=== PATIENT | female | born 1950 | race Caucasian/White ===

== ENCOUNTER → 2016-12-03 15:24 | Outpatient (CLI) | payer MEDICARE ==
[2016-12-03 15:56] LABS: BASOPHILS 0.1 % (0-2); EOSINOPHILS 1.3 % (0-7); HEMATOCRIT 28.8 % (36.0-48.0); HEMOGLOBIN 9.1 g/dL (12-16); IMMATURE GRANULOCYTES 0.3 % (0-5); LYMPHOCYTES 11.8 % (15-50); MCH 26.7 pg (26.0-34.0); MCHC 31.6 g/dL (31.0-37.0); MCV 84.5 fL (80.0-100.0); MEAN PLATELET VOLUME 8.4 fL (7.4-10.4); MONOCYTES 8.3 % (2-11); NEUTROPHILS 78.2 % (40-80); PLATELET COUNT 358 10x3/uL (130-400); RBC 3.41 10x6/uL (4.00-5.40); WBC 7.9 10x3/uL (4.8-10.8)
[2016-12-03 16:09] LABS: ANION GAP 12.3 mmol/L (8-16); C-REACTIVE PROTEIN 10.2 mg/dL (0.0-0.9); CALCIUM 9.1 mg/dL (8.5-10.1); CREATININE - SERUM 1.4 mg/dL (0.6-1.3); POTASSIUM - SERUM 4.3 mmol/L (3.5-5.1)
[2016-12-03 16:52] LABS: ERYTHROCYTE SEDIMENTATION RATE 140 mm/hr (0-30)
== END | disposition home or self-care (01) ==
LOC: D.LABREF 15:24
PROVIDERS: Student in an Organized Health Care Education/Training Program
DX: M86.9 Osteomyelitis, unspecified (principal)

== ENCOUNTER 2017-09-23 17:21 | Inpatient (IN) | payer MEDICARE ==
[~2017-09-23] VITALS: Ht 170.2 cm; Wt 81.6 kg
--- NOTE | ~2017-09-23 | CN ---
PATIENT NAME:BRY GABRIEL MEDICAL RECORD: [id number] : 46 LOCATION:D.MS Mcknight4 ADMIT DATE: 09/23/17 ACCOUNT: [id number] CONSULTING PHYSICIAN: CONY BROOKS MD REFERRING PHYSICIAN: ANMOL SALINAS MD DATE OF CONSULTATION: 09/26/2017 HISTORY OF PRESENT ILLNESS: A 66-year-old lady transferred from [facility] with osteomyelitis being evaluated for bilateral BKAs. We are asked to see her preoperatively from a cardiovascular standpoint. She has history of atrial fibrillation, coronary artery disease, quite a poor historian. Her rates from previous ECGs and telemetry here show good control. Echo done at this facility shows normal LV function, no significant valve pathology. We are asked to see her preoperatively. PAST MEDICAL HISTORY: Includes: 1. History of peripheral vascular disease. 2. Diabetes mellitus. 3. Atrial fibrillation. 4. Coronary artery disease. 5. Anemia. 6. Hypertension. 7. Dyslipidemia. MEDICATIONS: Upon transfer include: 1. Synthroid 200 mcg every day. 2. Insulin per scale. 3. Lasix 40 every day. 4. Tramadol 50 mg q.6 hours p.r.n. 5. Neurontin 300 mg t.i.d. 6. Lexapro 10 every day. 7. Simvastatin 20 every day. 8. Imdur 60 every day. 9. Cardizem 90 every day. 10. Carvedilol 3.125 every day. 11. Plavix 75 every day. 12. Megace 20 every day. SOCIAL HISTORY: Resides in a correction in [place]. She is wheelchair bound for the past several months. ALLERGIES: Ether. PHYSICAL EXAMINATION: GENERAL: Pleasant female in no acute distress. VITAL SIGNS: Blood pressure 124/64, pulse 100 and irregular. HEENT: Normocephalic, atraumatic. NECK: No bruits noted. HEART: Irregular, rate is controlled, II/ systolic ejection murmur. LUNGS: Fairly good air excursion. ABDOMEN: Soft, nontender. DIAGNOSTIC DATA: ECG shows nonspecific ST-T changes inferiorly. IMPRESSION: Atrial fibrillation with controlled rate. LV function normal via CONSULT REPORT [id number] BRY GABRIEL echo, no significant valve pathology. No contraindication to surgery from a cardiovascular standpoint. TRANSINT:[id number] Voice Confirmation ID: [id number] DOCUMENT ID: [id number] CONY BROOKS MD at 1155 CC: [id number] DICTATION DATE: 09/26/17928 SAP DATA ARCHITECT: 09/26/17 1159 ADM IN [place] [id number] [place] [id number]
--- NOTE | ~2017-09-23 | EC ---
PATIENT:BRY GABRIEL DATE OF SERVICE: 09/23/17 SEX: F MEDICAL RECORD: [id number] DATE OF : 46 LOCATION:D.MS Mcknight AGE OF PATIENT: 66 ADMISSION DATE: 09/23/17 REFERRING PHYSICIAN: INTERPRETING PHYSICIAN: CONY BROOKS MD ECHOCARDIOGRAM REPORT ECHO CHARGES 4 ECHO COMPLETE Date: 09/25 CLINICAL DIAGNOSIS: EVALUATE LV FUN/ PRE SURGERY HO OF HTN ECHOCARDIOGRAPHIC MEASUREMENTS (adult normal given) AC root (d.<3.7cm) 3.2 cm LV Septum d (<1.2 cm> 1.3 cm Valve Excursion 1.5 cm LV Septum (systole) 1.5 cm Left Atria (s.<4.0cm> 4.4 cm LVPW d(<1.2cm) 1.5 cm RV (d.<2.3cm) 4.5 cm LVPW (sytole) 1.8 cm LV diastole(<5.6CM) 5.1 cm MV E-F(>70mm/sec) cm LV systole 3.9 cm LVOT Diameter 1.5 cm MV exc.(>10mm) 1.2 cm Est.ejection fraction (50-75%) % DOPPLER: LVIT cm/sec A 36.0 cm/sec E 126 cm/sec LA cm/sec RVSP 43 mmHg LVOT 102 cm/sec AOP1/2T m/s Asc. Ao 159 cm/sec RVOT 102 cm/sec RA cm/sec PA 111 cm/sec AV Gradient Peak 10.17mmHg AV Mean 5.71 mmHg AV Area 1.2 cm MV Gradient Peak 8.22 mmHg MV Mean 3.15 mmHg MV Area cm COMMENTS: [employer] Scientific Aid: 2 LINDA HERNANDEZ Credit Administration Specialist: 3 Dr. lEi TAPE# PACS Pericardial Effusion N DATE OF SERVICE: Adequate 2D, color flow, spectral Doppler and M-mode. Borderline LVH. LV internal dimension is normal. Wall motion is normal. EF is greater than 55%. Aortic valve is tricuspid. No evidence of stenosis on Doppler interrogation. Left atrium dilated at 4.4 cm. Mitral valve shows no prolapse. Mild MR. Right-sided chambers normal. Trace TR. TRANSINT:[id number] Voice Confirmation ID: [id number] DOCUMENT ID: [id number] ECHOCARDIOGRAM REPORT [id number] BRY GABRIEL CONY BROOKS MD at 1155 CC: [id number] DICTATION DATE: 09/26/1725 PHLEBOTOMY COORDINATOR: 09/26/17 1115 ADM IN [facility] [address] [place] [id number]
--- NOTE | ~2017-09-23 | OP ---
PATIENT NAME: BRY GABRIEL MEDICAL RECORD: [id number] :46 LOCATION:D.MS Dias2214 ADMISSION DATE:09/23/17 SURGEON: TAMERA BYRNE MD DATE OF OPERATION: 09/30/2017 PREOPERATIVE DIAGNOSIS: Bilateral lower extremity osteomyelitis with severe peripheral vascular disease. POSTOPERATIVE DIAGNOSIS: Bilateral lower extremity osteomyelitis with severe peripheral vascular disease. PROCEDURE: Bilateral below-knee amputation. SURGEON: Tamera Byrne MD ANESTHESIA: General. INTRAOPERATIVE COMPLICATIONS: None. SUMMARY OF PATHOLOGIC FINDINGS: The patient had fairly good blood flow at the level of the amputation, likely resulting in an opportunity for good healing. Understanding the risks, hazards and benefits associated with this procedure, the patient consented and wished to proceed with bilateral lower extremity amputation. OPERATIVE SUMMARY IN DETAIL: After obtaining the appropriate preoperative orthopedic surgery consent as well as anesthetic consultation, evaluation and clearance, the patient was brought to the operating room and placed on operating table in supine position. After general laryngeal mask airway was administered, tourniquet was placed about the proximal aspect of bilateral lower extremities. Bilateral lower extremities were then prepped and draped in routine sterile fashion. Attention was first turned to the left lower extremity. Left lower extremity was elevated and exsanguinated, tourniquet was inflated to 250 mmHg. Routine incision was drawn out with a long gastroc flap. Incision was then taken down to the level of the tibia as well as the level of the fibula. The tibia was cut with the System 6 power saw. Dissection was then carried to the fibula where the fibula was osteotomized more proximally. Having completed this, the amputation was completed with the amputation knife leaving a long posterior gastroc flap. Chevron cut was made in the anterior aspect of the tibia. At this point, the wound was copiously irrigated. All vessels were identified and tied. The tourniquet was then deflated. Further bleeding was either coagulated or tied for ligation. The fascia of the posterior compartment was then reapproximated to the periosteum and fascia anteriorly bringing the flap around and then the final skin closure was achieved with #1 Vicryl followed by skin rosie. This wound was provisionally dressed. The tourniquet was deflated. Attention was then turned to the right lower extremity. Right lower extremity was elevated and exsanguinated and tourniquet was inflated to 350 mmHg. Again, the incision was drawn out, was taken down to the level of the tibia as well as the fibula. Osteotomy was performed with a System 6 saw as was the fibula more proximal to the tibial cut. The amputation was then completed with an amputation knife for a long posterior gastroc flap. Chevron cut was made on the proximal aspect of the tibia. Again, the fascia of the posterior gastroc was reapproximated to the periosteum and fascia of the anterior compartment and tibia. Prior to this, again all vessels were ligated and the OPERATIVE REPORT [id number] BRY GABRIEL tourniquet was deflated. All bleeders were coagulated. Final skin closure was achieved with #1 Vicryl and skin rosie. Sterile dressings were applied. Tourniquet was deflated. Bilateral lower extremities were then terminally wrapped with sterile dressings. The patient was awakened, taken to recovery room in stable condition. All final needle and sponge counts were correct. TRANSINT:[id number] Voice Confirmation ID: [id number] DOCUMENT ID: [id number] CHAVEZ SOOD, TAMERA REYNOLDS at 1518 CC: [id number] DICTATION DATE: 11/03/17 08 HYDRAULIC TECHNICIAN: 11/03/17 1344 DIS IN 10/04/17 [facility] [address] [place] [address]
[2017-09-23 18:27] LABS: BASOPHILS 0.1 % (0-2); EOSINOPHILS 0.2 % (0-7); HEMATOCRIT 27.7 % (36.0-48.0); HEMOGLOBIN 9.1 g/dL (12-16); IMMATURE GRANULOCYTES 0.4 % (0-5); MCH 28.6 pg (26.0-34.0); MCHC 32.9 g/dL (31.0-37.0); MCV 87.1 fL (80.0-100.0); MEAN PLATELET VOLUME 8.4 fL (7.4-10.4); NEUTROPHILS 84.3 % (40-80); RBC 3.18 10x6/uL (4.00-5.40); RDW 14.4 % (11.5-14.5); WBC 8.1 10x3/uL (4.8-10.8)
[2017-09-23 18:29] LABS: ALBUMIN 1.6 g/dL (3.4-5.0); ANION GAP 12.6 mmol/L (8-16); BILIRUBIN - TOTAL 0.45 mg/dL (0.2-1.3); CALCIUM 8.2 mg/dL (8.5-10.1); CARBON DIOXIDE 25.2 mmol/L (21.0-32.0); CREATININE - SERUM 1.4 mg/dL (0.6-1.3); POTASSIUM - SERUM 4.8 mmol/L (3.5-5.1); PROTEIN - SERUM 8.1 g/dL (6.4-8.2)
[2017-09-23 18:52] LABS: PLATELET COUNT 286 10x3/uL (130-400)
[2017-09-23 22:57] VITALS: BP 96/60; BMI 28.2
[2017-09-24] MEDS ORDERED: GABAPENTIN (00:16)
[2017-09-24] MEDS ORDERED: C-500500 M1 PO (00:20)
[2017-09-24] MEDS ORDERED: COREG 3.1253.125 MG PO (00:21)
[2017-09-24] MEDS ORDERED: PLAVIX75 MG PO (00:22)
[2017-09-24] MEDS ORDERED: COLACE100 MG PO (00:23)
[2017-09-24] MEDS ORDERED: LEXAPRO10 MG PO (00:24)
[2017-09-24] MEDS ORDERED: FERROUS SULFAT325 MG PO (00:25)
[2017-09-24] MEDS ORDERED: ISOSORBIDE MONO60 M1 PO (00:26)
[2017-09-24] MEDS ORDERED: NEURONTIN 300300 MG PO (00:26)
[2017-09-24] MEDS ORDERED: LANTUS SOL100 UNIT/1 SC (00:27)
[2017-09-24] MEDS ORDERED: LASIX40 MG PO (00:40)
[2017-09-24] MEDS ORDERED: SYNTHROID200 MC1 PO (00:49)
[2017-09-24] MEDS ORDERED: NOVOLOG100 U/M1 SC (00:51)
[2017-09-24] MEDS ORDERED: PENTOXIFYLLINE400 MG PO (00:52)
[2017-09-24] MEDS ORDERED: ZOCOR20 MG PO (00:54)
[2017-09-24] MEDS ORDERED: POTASSIUM CHLO10 ME1 PO (00:54)
[2017-09-24] MEDS ORDERED: STRESSTABS WITH1 TAB PO (00:55)
[2017-09-24] MEDS ORDERED: ULTRAM50 MG PO (00:56)
[2017-09-24] MEDS ORDERED: CARDIZEM 90 MG90 MG (00:59)
[2017-09-24] MEDS ORDERED: MEGACE 20 MG TA20 MG PO (01:01)
[2017-09-24 04:22] VITALS: BP 97/52
[2017-09-24 04:23] LABS: BASOPHILS 0 % (0-2); EOSINOPHILS 0.7 % (0-7); IMMATURE GRANULOCYTES 0.3 % (0-5); LYMPHOCYTES 8.4 % (15-50); MCH 27.8 pg (26.0-34.0); MCHC 32.3 g/dL (31.0-37.0); MCV 86.3 fL (80.0-100.0); MEAN PLATELET VOLUME 8.1 fL (7.4-10.4); MONOCYTES 5.3 % (2-11); NEUTROPHILS 85.3 % (40-80); PLATELET COUNT 233 10x3/uL (130-400); RBC 2.55 10x6/uL (4.00-5.40); RDW 14.5 % (11.5-14.5)
[2017-09-24 04:31] LABS: WBC 5.8 10x3/uL (4.8-10.8)
[2017-09-24 04:32] LABS: HEMOGLOBIN 7.1 g/dL (12-16)
[2017-09-24 04:45] LABS: ANION GAP 12.4 mmol/L (8-16); CALCIUM 7.8 mg/dL (8.5-10.1); CREATININE - SERUM 1.3 mg/dL (0.6-1.3); POTASSIUM - SERUM 4.4 mmol/L (3.5-5.1)
[2017-09-24 07:42] VITALS: BP 92/56
[2017-09-24 09:56] LABS: % SATURATION 19 % (15-55); IRON 17 ug/dl (35-150); TOTAL IRON BIND CAPACITY 86 ug/dl (260-445); UNSAT IRON BIND CAPACITY 69 ug/dl (150-375)
[2017-09-24 10:05] LABS: BASOPHILS 0.2 % (0-2); EOSINOPHILS 0.5 % (0-7); HEMATOCRIT 25.9 % (36.0-48.0); HEMOGLOBIN 8.3 g/dL (12-16); IMMATURE GRANULOCYTES 0.3 % (0-5); LYMPHOCYTES 4.9 % (15-50); MCH 27.9 pg (26.0-34.0); MCV 86.9 fL (80.0-100.0); MONOCYTES 6.6 % (2-11); NEUTROPHILS 87.5 % (40-80); PLATELET COUNT 215 10x3/uL (130-400); RBC 2.98 10x6/uL (4.00-5.40); RDW 14.4 % (11.5-14.5); WBC 6.5 10x3/uL (4.8-10.8)
[2017-09-24 12:24] VITALS: BP 107/54
[2017-09-24 13:43] VITALS: BMI 28.2
[2017-09-24 14:33] VITALS: Ht 170.2 cm; Wt 81.6 kg
[2017-09-24 15:35] VITALS: BP 112/58
[2017-09-24 20:38] VITALS: BP 94/44
[2017-09-24 23:47] VITALS: BP 120/66
[2017-09-25 04:00] VITALS: BP 123/79
[2017-09-25 07:58] LABS: BASOPHILS 0.4 % (0-2); EOSINOPHILS 2.7 % (0-7); HEMATOCRIT 26.1 % (36.0-48.0); HEMOGLOBIN 8.4 g/dL (12-16); IMMATURE GRANULOCYTES 0.2 % (0-5); LYMPHOCYTES 8.3 % (15-50); MCHC 32.2 g/dL (31.0-37.0); MEAN PLATELET VOLUME 8.2 fL (7.4-10.4); MONOCYTES 5.6 % (2-11); NEUTROPHILS 82.8 % (40-80); PLATELET COUNT 241 10x3/uL (130-400); RDW 14.6 % (11.5-14.5); WBC 5.2 10x3/uL (4.8-10.8)
[2017-09-25 08:11] LABS: ALBUMIN 1.4 g/dL (3.4-5.0); ANION GAP 9.1 mmol/L (8-16); BILIRUBIN - TOTAL 0.41 mg/dL (0.2-1.3); CALCIUM 7.8 mg/dL (8.5-10.1); CARBON DIOXIDE 26.2 mmol/L (21.0-32.0); CREATININE - SERUM 1.2 mg/dL (0.6-1.3); MAGNESIUM - SERUM 1.4 mg/dL (1.8-2.4); PHOSPHOROUS 3.1 mg/dL (2.5-4.9); POTASSIUM - SERUM 4.3 mmol/L (3.5-5.1); PROTEIN - SERUM 7.4 g/dL (6.4-8.2)
[2017-09-25 08:37] VITALS: BP 134/81
[2017-09-25 11:39] VITALS: BP 131/79
[2017-09-25 14:30] LABS: APPEARANCE TURBID (CLEAR); BILIRUBIN NEGATIVE (NEGATIVE); COLOR YELLOW (YELLOW); GLUCOSE NEGATIVE (NEGATIVE); KETONE NEGATIVE (NEGATIVE); NITRITE NEGATIVE (NEGATIVE); PROTEIN TRACE mg/dL (NEGATIVE); SPECIFIC GRAVITY 1.015 (1.005-1.020); UROBILINOGEN NORMAL (NORMAL)
[2017-09-25 14:40] LABS: BACTERIA MANY /hpf (NONE SEEN); EPITHELIAL CELLS 0-5 /hpf (0-5); RED CELLS - URINE 0-5 /hpf (0-5); WHITE CELLS - URINE >50 /hpf (0-5)
[2017-09-25 15:40] VITALS: BP 143/75
[2017-09-25 20:41] VITALS: BP 100/54
[2017-09-26 00:45] VITALS: BP 155/78
[2017-09-26 00:50] VITALS: BP 113/56
[2017-09-26 04:30] VITALS: BP 126/64
[2017-09-26 07:43] LABS: BASOPHILS 0.3 % (0-2); EOSINOPHILS 3.2 % (0-7); HEMOGLOBIN 8.3 g/dL (12-16); IMMATURE GRANULOCYTES 0.3 % (0-5); LYMPHOCYTES 13.9 % (15-50); MCHC 31.9 g/dL (31.0-37.0); MCV 87.8 fL (80.0-100.0); MONOCYTES 6.4 % (2-11); NEUTROPHILS 75.9 % (40-80); PLATELET COUNT 251 10x3/uL (130-400); RBC 2.96 10x6/uL (4.00-5.40); RDW 14.6 % (11.5-14.5)
[2017-09-26 07:45] LABS: WBC 3.8 10x3/uL (4.8-10.8)
[2017-09-26 07:57] LABS: APTT 37.9 SECONDS (22.8-39.4); INR 1.27 (0.85-1.17); PROTIME 15.5 SECONDS (11.6-15.0)
[2017-09-26 08:03] LABS: ALBUMIN 1.3 g/dL (3.4-5.0); ANION GAP 9.4 mmol/L (8-16); BILIRUBIN - TOTAL 0.3 mg/dL (0.2-1.3); CALCIUM 7.7 mg/dL (8.5-10.1); CARBON DIOXIDE 23.9 mmol/L (21.0-32.0); CREATININE - SERUM 0.9 mg/dL (0.6-1.3); MAGNESIUM - SERUM 1.3 mg/dL (1.8-2.4); PHOSPHOROUS 2.7 mg/dL (2.5-4.9); POTASSIUM - SERUM 4.3 mmol/L (3.5-5.1)
[2017-09-26 11:13] LABS: FOLATE (FOLIC ACID) - SERUM 12.4 ng/mL (>3.0)
[2017-09-26 12:39] VITALS: BP 138/81
[2017-09-26 16:37] VITALS: BP 137/79
[2017-09-26 21:29] VITALS: BP 124/41
[2017-09-27 00:44] VITALS: BP 128/48
[2017-09-27 04:00] VITALS: BP 132/74
[2017-09-27 04:35] LABS: BASOPHILS 0 % (0-2); EOSINOPHILS 1.8 % (0-7); HEMATOCRIT 25.1 % (36.0-48.0); HEMOGLOBIN 7.9 g/dL (12-16); IMMATURE GRANULOCYTES 0.4 % (0-5); LYMPHOCYTES 15.7 % (15-50); MCH 27.6 pg (26.0-34.0); MCHC 31.5 g/dL (31.0-37.0); MCV 87.8 fL (80.0-100.0); MEAN PLATELET VOLUME 8.1 fL (7.4-10.4); NEUTROPHILS 75.1 % (40-80); PLATELET COUNT 246 10x3/uL (130-400); RBC 2.86 10x6/uL (4.00-5.40); RDW 14.7 % (11.5-14.5); WBC 4.5 10x3/uL (4.8-10.8)
[2017-09-27 04:52] LABS: ALBUMIN 1.2 g/dL (3.4-5.0); ANION GAP 11.1 mmol/L (8-16); BILIRUBIN - TOTAL 0.29 mg/dL (0.2-1.3); CALCIUM 7.8 mg/dL (8.5-10.1); CARBON DIOXIDE 24.4 mmol/L (21.0-32.0); POTASSIUM - SERUM 4.5 mmol/L (3.5-5.1); PROTEIN - SERUM 6.9 g/dL (6.4-8.2)
[2017-09-27 08:39] VITALS: BP 135/79
[2017-09-27 13:12] VITALS: BP 120/73
[2017-09-27 16:30] VITALS: BP 91/46
[2017-09-27 22:21] VITALS: BP 90/47
[2017-09-28 01:10] VITALS: BP 90/54
[2017-09-28 05:03] VITALS: BP 97/49
[2017-09-28 05:08] LABS: BASOPHILS 0 % (0-2); EOSINOPHILS 2.6 % (0-7); HEMATOCRIT 23.6 % (36.0-48.0); IMMATURE GRANULOCYTES 0.5 % (0-5); LYMPHOCYTES 11.8 % (15-50); MCH 27.7 pg (26.0-34.0); MCHC 31.4 g/dL (31.0-37.0); MCV 88.4 fL (80.0-100.0); MONOCYTES 7.4 % (2-11); NEUTROPHILS 77.7 % (40-80); PLATELET COUNT 238 10x3/uL (130-400); RBC 2.67 10x6/uL (4.00-5.40); RDW 14.8 % (11.5-14.5); WBC 4.2 10x3/uL (4.8-10.8)
[2017-09-28 05:29] LABS: ALBUMIN 1.2 g/dL (3.4-5.0); ANION GAP 10.2 mmol/L (8-16); BILIRUBIN - TOTAL 0.29 mg/dL (0.2-1.3); CALCIUM 7.5 mg/dL (8.5-10.1); CARBON DIOXIDE 23.1 mmol/L (21.0-32.0); POTASSIUM - SERUM 4.3 mmol/L (3.5-5.1); PROTEIN - SERUM 6.6 g/dL (6.4-8.2)
[2017-09-28 05:30] LABS: HEMOGLOBIN 7.4 g/dL (12-16)
[2017-09-28 07:52] VITALS: BP 106/61
[2017-09-28 12:20] VITALS: BP 95/49
[2017-09-28 20:31] VITALS: BP 110/64
[2017-09-29 05:57] LABS: BASOPHILS 0.2 % (0-2); EOSINOPHILS 3.3 % (0-7); HEMATOCRIT 26.7 % (36.0-48.0); HEMOGLOBIN 8.5 g/dL (12-16); IMMATURE GRANULOCYTES 0.7 % (0-5); LYMPHOCYTES 9.2 % (15-50); MCH 27.9 pg (26.0-34.0); MCHC 31.8 g/dL (31.0-37.0); MCV 87.5 fL (80.0-100.0); MEAN PLATELET VOLUME 8.2 fL (7.4-10.4); MONOCYTES 6.6 % (2-11); PLATELET COUNT 241 10x3/uL (130-400); RBC 3.05 10x6/uL (4.00-5.40); RDW 15.2 % (11.5-14.5); WBC 4.3 10x3/uL (4.8-10.8)
[2017-09-29 06:11] LABS: ALBUMIN 1.2 g/dL (3.4-5.0); ANION GAP 12.1 mmol/L (8-16); BILIRUBIN - TOTAL 0.4 mg/dL (0.2-1.3); CALCIUM 7.6 mg/dL (8.5-10.1); CARBON DIOXIDE 20.3 mmol/L (21.0-32.0); POTASSIUM - SERUM 4.4 mmol/L (3.5-5.1); PROTEIN - SERUM 6.6 g/dL (6.4-8.2)
[2017-09-29 06:20] VITALS: BP 110/62
[2017-09-29 08:10] VITALS: BP 119/64
[2017-09-29 12:49] VITALS: BP 84/48
[2017-09-29 15:55] VITALS: BP 106/53
[2017-09-29 20:46] VITALS: BP 124/80
[2017-09-30 04:49] VITALS: BP 116/70
[2017-09-30 06:28] LABS: BASOPHILS 0.5 % (0-2); EOSINOPHILS 4.6 % (0-7); HEMATOCRIT 30.6 % (36.0-48.0); HEMOGLOBIN 10.1 g/dL (12-16); IMMATURE GRANULOCYTES 0.7 % (0-5); LYMPHOCYTES 7.7 % (15-50); MCH 28.1 pg (26.0-34.0); MCV 85.2 fL (80.0-100.0); MEAN PLATELET VOLUME 8.2 fL (7.4-10.4); NEUTROPHILS 80.5 % (40-80); PLATELET COUNT 247 10x3/uL (130-400); RBC 3.59 10x6/uL (4.00-5.40); RDW 14.7 % (11.5-14.5); WBC 4.2 10x3/uL (4.8-10.8)
[2017-09-30 06:44] LABS: ALBUMIN 1.2 g/dL (3.4-5.0); ANION GAP 12.2 mmol/L (8-16); BILIRUBIN - TOTAL 0.4 mg/dL (0.2-1.3); CALCIUM 7.7 mg/dL (8.5-10.1); CARBON DIOXIDE 20.8 mmol/L (21.0-32.0); PROTEIN - SERUM 6.8 g/dL (6.4-8.2)
[2017-09-30 08:11] LABS: APTT 38.9 SECONDS (22.8-39.4); INR 1.47 (0.85-1.17); PROTIME 17.3 SECONDS (11.6-15.0)
[2017-09-30 08:25] VITALS: BP 105/68
[2017-09-30 11:01] LABS: HEMATOCRIT 25.6 % (36.0-48.0); HEMOGLOBIN 8.5 g/dL (12-16)
[2017-09-30 11:28] VITALS: BP 92/62
[2017-09-30 20:16] VITALS: BP 105/64
[2017-09-30 23:49] VITALS: BP 93/60
[2017-10-01 04:20] VITALS: BP 109/64
[2017-10-01 05:06] LABS: BASOPHILS 0.3 % (0-2); HEMATOCRIT 25.8 % (36.0-48.0); HEMOGLOBIN 8.4 g/dL (12-16); IMMATURE GRANULOCYTES 0.6 % (0-5); LYMPHOCYTES 7.9 % (15-50); MCH 28.3 pg (26.0-34.0); MCHC 32.6 g/dL (31.0-37.0); MCV 86.9 fL (80.0-100.0); MEAN PLATELET VOLUME 8.5 fL (7.4-10.4); MONOCYTES 7.1 % (2-11); NEUTROPHILS 81.1 % (40-80); PLATELET COUNT 251 10x3/uL (130-400); RBC 2.97 10x6/uL (4.00-5.40)
[2017-10-01 05:11] LABS: WBC 6.2 10x3/uL (4.8-10.8)
[2017-10-01 05:23] LABS: ALBUMIN 1.2 g/dL (3.4-5.0); BILIRUBIN - TOTAL 0.34 mg/dL (0.2-1.3); CALCIUM 7.2 mg/dL (8.5-10.1); CARBON DIOXIDE 20.5 mmol/L (21.0-32.0); CREATININE - SERUM 1.1 mg/dL (0.6-1.3); POTASSIUM - SERUM 4.5 mmol/L (3.5-5.1); PROTEIN - SERUM 6.5 g/dL (6.4-8.2)
[2017-10-01 08:00] VITALS: BP 93/55
[2017-10-01 11:54] VITALS: BP 106/62
[2017-10-01 20:00] VITALS: BP 95/47
[2017-10-02] VITALS: BP 95/51
[2017-10-02 04:00] VITALS: BP 112/67
[2017-10-02 07:41] LABS: BASOPHILS 0.3 % (0-2); EOSINOPHILS 3.5 % (0-7); HEMATOCRIT 24.9 % (36.0-48.0); IMMATURE GRANULOCYTES 0.8 % (0-5); LYMPHOCYTES 10.4 % (15-50); MCH 28.2 pg (26.0-34.0); MCHC 32.1 g/dL (31.0-37.0); MCV 87.7 fL (80.0-100.0); MEAN PLATELET VOLUME 8.5 fL (7.4-10.4); MONOCYTES 8.5 % (2-11); NEUTROPHILS 76.5 % (40-80); PLATELET COUNT 243 10x3/uL (130-400); RBC 2.84 10x6/uL (4.00-5.40); RDW 15.2 % (11.5-14.5)
[2017-10-02 08:06] LABS: ANION GAP 13.8 mmol/L (8-16); BILIRUBIN - TOTAL 0.28 mg/dL (0.2-1.3); CALCIUM 7.1 mg/dL (8.5-10.1); CARBON DIOXIDE 19.8 mmol/L (21.0-32.0); CREATININE - SERUM 1.1 mg/dL (0.6-1.3); POTASSIUM - SERUM 4.6 mmol/L (3.5-5.1); PROTEIN - SERUM 6.3 g/dL (6.4-8.2)
[2017-10-02 08:19] VITALS: BP 107/67
[2017-10-02 12:19] VITALS: BP 92/52
[2017-10-02 20:00] VITALS: BP 91/57
[2017-10-03 04:00] VITALS: BP 104/59
[2017-10-03 06:11] LABS: BILIRUBIN - TOTAL 0.26 mg/dL (0.2-1.3); CARBON DIOXIDE 18.6 mmol/L (21.0-32.0); CREATININE - SERUM 1.1 mg/dL (0.6-1.3); POTASSIUM - SERUM 4.6 mmol/L (3.5-5.1); PROTEIN - SERUM 5.5 g/dL (6.4-8.2)
[2017-10-03 06:18] LABS: CALCIUM 6.9 mg/dL (8.5-10.1)
[2017-10-03 06:36] LABS: BASOPHILS 0.3 % (0-2); EOSINOPHILS 4.7 % (0-7); HEMATOCRIT 25.1 % (36.0-48.0); HEMOGLOBIN 8.1 g/dL (12-16); IMMATURE GRANULOCYTES 0.9 % (0-5); MCHC 32.3 g/dL (31.0-37.0); MCV 86.9 fL (80.0-100.0); MEAN PLATELET VOLUME 8.4 fL (7.4-10.4); MONOCYTES 10.5 % (2-11); NEUTROPHILS 70.6 % (40-80); PLATELET COUNT 218 10x3/uL (130-400); RBC 2.89 10x6/uL (4.00-5.40); RDW 15.6 % (11.5-14.5); WBC 6.6 10x3/uL (4.8-10.8)
[2017-10-03 08:06] VITALS: BP 108/59
[2017-10-03 12:00] VITALS: BP 102/58
[2017-10-03 14:16] LABS: ERYTHROPOIETIN 29.8 mIU/mL (2.6-18.5)
[2017-10-03 15:10] VITALS: BP 85/43
[2017-10-03 15:14] VITALS: BP 104/60
[2017-10-03 21:52] VITALS: BP 95/53
[2017-10-04 00:37] VITALS: BP 91/55
[2017-10-04 04:59] VITALS: BP 111/59
[2017-10-04 05:06] LABS: BASOPHILS 0.2 % (0-2); EOSINOPHILS 3.6 % (0-7); HEMATOCRIT 24.3 % (36.0-48.0); HEMOGLOBIN 8.1 g/dL (12-16); IMMATURE GRANULOCYTES 1.4 % (0-5); LYMPHOCYTES 10.4 % (15-50); MCH 29.1 pg (26.0-34.0); MCHC 33.3 g/dL (31.0-37.0); MCV 87.4 fL (80.0-100.0); MEAN PLATELET VOLUME 8.4 fL (7.4-10.4); MONOCYTES 8.8 % (2-11); NEUTROPHILS 75.6 % (40-80); RBC 2.78 10x6/uL (4.00-5.40); RDW 15.9 % (11.5-14.5); WBC 8.1 10x3/uL (4.8-10.8)
[2017-10-04 05:20] LABS: PLATELET COUNT 287 10x3/uL (130-400)
[2017-10-04 05:26] LABS: ANION GAP 13.7 mmol/L (8-16); BILIRUBIN - TOTAL 0.32 mg/dL (0.2-1.3); CALCIUM 7.1 mg/dL (8.5-10.1); CREATININE - SERUM 1.3 mg/dL (0.6-1.3); POTASSIUM - SERUM 4.7 mmol/L (3.5-5.1); PROTEIN - SERUM 6.3 g/dL (6.4-8.2)
[2017-10-04 07:29] LABS: SPE - A/G RATIO 0.4 (0.7-1.7); SPE - ALBUMIN 1.6 g/dL (2.9-4.4); SPE - ALPHA-1 GLOBULIN 0.3 g/dL (0.0-0.4); SPE - ALPHA-2 GLOBULIN 0.8 g/dL (0.4-1.0); SPE - BETA GLOBULIN 0.9 g/dL (0.7-1.3); SPE - GAMMA GLOBULIN 2.2 g/dL (0.4-1.8); SPE - M-SPIKE Not Observed g/dL (Not Observed); SPE - TOTAL PROTEIN 5.8 g/dL (6.0-8.5)
[2017-10-04 09:19] VITALS: BP 106/56
[2017-10-04 09:25] VITALS: BP 106/56
[2017-10-04 09:53] LABS: INR 1.64 (0.85-1.17); PROTIME 18.9 SECONDS (11.6-15.0)
[2017-10-04 13:07] VITALS: BP 104/53
[2017-10-04 17:18] VITALS: BP 90/49
[2017-10-06 18:10] LABS: ADAMTS13 ACTIVITY 73.2 % (>66.8)
[2017-10-10 09:10] LABS: HAPTOGLOBIN 226 mg/dL (34-200)
== END 2017-10-04 17:39 | disposition short-term general hospital (02) | DRG 853 ==
LOC: D.ER 17:21 → D.MS 21:39
PROVIDERS: Anesthesiology; Emergency Medicine; Family Medicine; Internal Medicine Hematology & Oncology; Internal Medicine Nephrology; Orthopaedic Surgery; Specialist
PROC: 0Y6H0Z3 Detachment at Right Lower Leg, Low, Open Approach (ICD-10-PCS; 2017-09-30)
PROC: 0Y6J0Z3 Detachment at Left Lower Leg, Low, Open Approach (ICD-10-PCS; principal; 2017-09-30 08:30)
DX: A41.9 Sepsis, unspecified organism (principal); E43 Unspecified severe protein-calorie malnutrition; R53.2 Functional quadriplegia; M86.9 Osteomyelitis, unspecified; L97.429 Non-pressure chronic ulcer of left heel and midfoot with unspecified severity; L97.419 Non-pressure chronic ulcer of right heel and midfoot with unspecified severity; E87.1 Hypo-osmolality and hyponatremia; N17.9 Acute kidney failure, unspecified; E11.69 Type 2 diabetes mellitus with other specified complication; Z79.4 Long term (current) use of insulin; Z66 Do not resuscitate; E11.621 Type 2 diabetes mellitus with foot ulcer; L89.151 Pressure ulcer of sacral region, stage 1; B96.20 Unspecified Escherichia coli [E. coli] as the cause of diseases classified elsewhere; B96.89 Other specified bacterial agents as the cause of diseases classified elsewhere; E78.5 Hyperlipidemia, unspecified; D50.9 Iron deficiency anemia, unspecified; I10 Essential (primary) hypertension; I25.10 Atherosclerotic heart disease of native coronary artery without angina pectoris; I48.91 Unspecified atrial fibrillation; J44.9 Chronic obstructive pulmonary disease, unspecified; E03.9 Hypothyroidism, unspecified

== ENCOUNTER 2018-12-01 00:56 | Inpatient (IN) | payer MEDICARE ==
[2018-12-01] VITALS: BP 98/65
[~2018-12-01] VITALS: Ht 170.2 cm; Wt 96.0 kg
[~2018-12-01 00:56] MED LIST: C-500500 M1 PO; CARDIZEM 90 MG90 MG; COLACE100 MG PO; COREG 3.1253.125 MG PO; FERROUS SULFAT325 MG PO; GABAPENTIN; ISOSORBIDE MONO60 M1 PO; LANTUS SOL100 UNIT/1 SC; LASIX40 MG PO; LEXAPRO10 MG PO; MEGACE 20 MG TA20 MG PO; NEURONTIN 300300 MG PO; NOVOLOG100 U/M1 SC; PENTOXIFYLLINE400 MG PO; PLAVIX75 MG PO; POTASSIUM CHLO10 ME1 PO; STRESSTABS WITH1 TAB PO; SYNTHROID200 MC1 PO; ULTRAM50 MG PO; ZOCOR20 MG PO
[2018-12-01 01:44] LABS: HEMATOCRIT 23.6 % (36.0-48.0); HEMOGLOBIN 7.7 g/dL (12-16); MCH 28.7 pg (26.0-34.0); MCHC 32.6 g/dL (31.0-37.0); MCV 88.1 fL (80.0-100.0); MEAN PLATELET VOLUME 7.7 fL (7.4-10.4); PLATELET COUNT 253 10x3/uL (130-400); RBC 2.68 10x6/uL (4.00-5.40); RDW 14.8 % (11.5-14.5); WBC 29.2 10x3/uL (4.8-10.8)
[2018-12-01 01:53] LABS: ALBUMIN 1.6 g/dL (3.4-5.0); ANION GAP 13.3 mmol/L (8-16); BILIRUBIN - TOTAL 0.43 mg/dL (0.2-1.3); CALCIUM 8.2 mg/dL (8.5-10.1); CARBON DIOXIDE 21.8 mmol/L (21.0-32.0); CREATININE - SERUM 1.6 mg/dL (0.6-1.3); POTASSIUM - SERUM 3.1 mmol/L (3.5-5.1); PROTEIN - SERUM 6.7 g/dL (6.4-8.2)
--- NOTE | 2018-12-01 01:59 | NUR ---
WOUND CULTURE SENT TO LAB
[2018-12-01 02:13] LABS: LYMPHOCYTES 2 % (15-50); MONOCYTES 2 % (2-11); NEUTROPHILS 92 % (40-80); PLATELET ESTIMATE NORMAL
[2018-12-01 03:21] VITALS: BP 105/49; BMI 33.2
[2018-12-01 04:00] VITALS: BP 98/58
--- NOTE | 2018-12-01 05:06 | NUR ---
CATH UPON ADMISSION. MORIN CARE PROVIDED.
--- NOTE | 2018-12-01 12:00 | NUR ---
*WOUND CARE* STAGE 4 PRESSURE ULCER COCCYX 2 X 1.5 X 3CM WITH 0300 TUNNEL @ 4.5CM. - IRRIGATE WOUND WITH NORMAL SALINE AND DRY. - PACK WOUND WITH DAKIN'S SOLUTION MOISTENED KERLIX. - COVER WITH FOLDED 4X4 AND SECURE WITH TAPE. WOUND CARE TO BE PROVIDED TWICE DAILY AND WHEN SOILED.
[2018-12-01 14:42] VITALS: BMI 33.1
--- NOTE | 2018-12-01 16:00 | MORECARE ---
CASE MANAGEMENT DISCHARGE SUMMARY PATIENT: BRY GABRIEL UNIT: [id number] ADM DATE: 12/01/18 AGE: 67 : 48 SEX: F ROOM/BED: D.2236 AUTHOR: RAZ NATH PHYSICIAN: REFERRING PHYSICIAN: ANMOL SALINAS MD DATE OF SERVICE: 12/01/18 Discharge Plan Patient Name: BRY GABRIEL [facility] [facility] 1950 Planned Disposition: SNF w Planned Readmission Anticipated Discharge Date: Discharge Date: Expected LOS: Initial Reviewer: [email or web address] Initial Review Date: 12/01/2018 Generated: 12/01/18 4:59 pm Patient Name: BRY GABRIEL Page [id number] at 1600 All edits/amendments must be made on the electronic document DICTATION DATE: 12/01/18 1559 MAINTENANCE TECHNICIAN 3RD SHIFT: SHADIA 12/01/18 1559 RPT#: [id number] DC DATE: STATUS: ADM IN [facility] [address] [place] [address] END OF REPORT
--- NOTE | 2018-12-01 16:07 | MORECARE ---
CASE MANAGEMENT DISCHARGE SUMMARY PATIENT: BRY GABRIEL UNIT: [id number] ADM DATE: 12/01/18 AGE: 67 : 48 SEX: F ROOM/BED: D.2236 AUTHOR: PHAM,DOC PHYSICIAN: REFERRING PHYSICIAN: ANMOL SALINAS MD DATE OF SERVICE: 12/01/18 Discharge Plan Patient Name: BRY GABRIEL Facility: [facility]:[place] : 1950 Planned Disposition: SNF w Planned Readmission Anticipated Discharge Date: Discharge Date: Expected LOS: Initial Reviewer: [email or web address] Initial Review Date: 12/01/2018 Generated: 12/01/18 5:07 pm Comments DCP- Discharge Planning Updated by [email or web address]: Ingrid Ragsdale on 12/01/18 3:[address] Patient Name: BRY GABRIEL Admission Status: ER Accout number: [id number] Admission Date: 12-01-2018 : 1950 Admission Diagnosis:PRESSURE ULCER OF SACRAL REGION, STAGE 3 Attending: ANMOL SALINAS Current LOS: 1 Anticipated DC Date: Planned Disposition: SNF w Planned Readmission Primary Insurance: MEDICARE A & B Discharge Planning Comments: CM met with patient in the room to discuss discharge planning/needs. States she has been at [facility] in the skilled therapy unit and plans to return there at discharge. I spoke with Xin there at [facility] and she verifies that she has been in skilled and they will accept her back when ready for discharge. Xin states if she is going there on IV antibiotics, they will request a PICC line be placed. Patient is a BKA and states she has just gotten her prosthesis and learning to ambulate with them. CM will continue to follow and assist with discharge planning/needs. Stove Fitter: Ingrid Ragsdale DCPIA - Discharge Planning Initial Assessment Updated by [email or web address]: Ingrid Ragsdale on 12/01/18 4:00 pm * Is the patient Alert and Oriented? Yes * How many steps to enter\exit or inside your home? 0/0 * PCP Dr. Spencer Ortiz * Preadmission Environment Retirement Facility * Facility Name [facility] * ADLs Partial Dependent * Partial ADLs (Assistance needed) Ambulation Bathing Dressing Medication Management Toileting Transfers * Equipment Wheelchair * Other Equipment Prosthesis * List name and contact numbers for known caregivers / representatives who currently or will assist patient after discharge: Shea Garay [facility] - [phone] * Verbal permission to speak to the caregivers and representatives has been obtained from the patient. Yes * Community resources currently utilized None * Additional services required to return to the preadmission environment? No * Can the patient safely return to the preadmission environment? Yes * Has this patient been hospitalized within the prior 30 days at any hospital? Yes Coverage Notice Reviewer: [email or web address] Jazmin Ragsdale Notice Issued Date-Time: 12/01/2018 16:07 Notice Type: Patient Choice Letter Notice Delivered To: Patient Relationship to Patient: Self Cleaning Handyman Name: Delivery Method: - Jaci Days: Prior Verbal Notification: Recipient Understood Notice: Recipient Signature: Med Rec Note Co-signed by Attending: Coverage Notice Comment: Last DP export: 12/01/18 2:59 pm Patient Name: BRY GABRIEL Page [id number] at 1607 All edits/amendments must be made on the electronic document DICTATION DATE: 12/01/181606 NICKEL PLANT OPERATOR: SHADIA 12/01/18 160 RPT#: [id number] DC DATE: STATUS: ADM IN [facility] [address] [place] [address] END OF REPORT
--- NOTE | 2018-12-01 18:36 | NUR ---
I have reviewed this patient and I concur with the Shift Assessment completed by the Licensed Practical Nurse today this shift.
--- NOTE | 2018-12-01 19:00 | NUR ---
PT ALERT AND ORIENTED. SLOW TO RESPOND TO QUESTIONS AT TIMES. PT HAS LEFT THUMB IV THAT IS PATENT AND INFUSING AT THIS TIME. PT DENIES PAIN. WOUND CARE PROVIDED TO PATIENT PER DR. REECE FOLLOWING WOUND CARE ORDERS THAT WERE ENTERED TODAY. PT TOLERATED WELL. DENIES FURTHER ASSISTANCE AT THIS TIME. PT LAYS NEARLY ON STOMACH AND APPEARS UNCOMFORTABLE BUT REFUSES TO REPOSITION AT THIS TIME. CALL LIGHT IN REACH. CPOC.
[2018-12-01 19:27] VITALS: Ht 170.2 cm; Wt 96.0 kg
[2018-12-01 20:00] VITALS: BP 102/48
--- NOTE | 2018-12-02 00:40 | NUR ---
IV OUT. ATTEMPTED TO RESTART X 3. UNSUCCESSFUL.
[2018-12-02 02:10] LABS: APPEARANCE TURBID (CLEAR); COLOR DK YELLOW (YELLOW); GLUCOSE NEGATIVE (NEGATIVE); KETONE NEGATIVE (NEGATIVE); NITRITE NEGATIVE (NEGATIVE); PROTEIN 3+ mg/dL (NEGATIVE); SPECIFIC GRAVITY 1.015 (1.005-1.020)
[2018-12-02 02:11] LABS: AMORPHOUS SEDIMENT >1+ /lpf (NONE SEEN); BACTERIA MANY /hpf (NONE SEEN); BILIRUBIN NEGATIVE (NEGATIVE); GRANULAR CAST NONE SEEN /lpf (NONE SEEN); HYALINE CAST NONE SEEN /lpf (NONE SEEN); MUCUS >1+ /lpf (NONE SEEN); RED CELL CAST NONE SEEN /lpf (NONE SEEN); SPERMATOZOA NONE SEEN /hpf (NONE SEEN); WAXY CAST NONE SEEN /lpf (NONE SEEN); YEAST NONE SEEN /hpf (NONE SEEN)
--- NOTE | 2018-12-02 02:57 | NUR ---
I have reviewed this patient and I concur with the Shift Assessment completed by the Licensed Practical Nurse today this shift.
[2018-12-02 06:53] LABS: BASOPHILS 0 % (0-2); EOSINOPHILS 0.4 % (0-7); HEMATOCRIT 27.1 % (36.0-48.0); HEMOGLOBIN 9.1 g/dL (12-16); IMMATURE GRANULOCYTES 0.6 % (0-5); LYMPHOCYTES 2.7 % (15-50); MCH 28.2 pg (26.0-34.0); MCHC 33.6 g/dL (31.0-37.0); MCV 83.9 fL (80.0-100.0); MEAN PLATELET VOLUME 8.1 fL (7.4-10.4); MONOCYTES 3.6 % (2-11); NEUTROPHILS 92.7 % (40-80); PLATELET COUNT 256 10x3/uL (130-400); RBC 3.23 10x6/uL (4.00-5.40); RDW 16.5 % (11.5-14.5); WBC 23.2 10x3/uL (4.8-10.8)
[2018-12-02 06:57] LABS: ANION GAP 15.3 mmol/L (8-16); CALCIUM 7.9 mg/dL (8.5-10.1); CARBON DIOXIDE 18.2 mmol/L (21.0-32.0); CREATININE - SERUM 1.8 mg/dL (0.6-1.3); POTASSIUM - SERUM 3.5 mmol/L (3.5-5.1)
--- NOTE | 2018-12-02 07:51 | NUR ---
CALLED LAB AND SPOKE TO MARTITA REQUESTING A CULTURE BE ADDED TO PREVIOUSLY COLLECTED URINE. SHE CONFIRMED.
[2018-12-02 08:30] VITALS: BP 112/48
--- NOTE | 2018-12-02 09:43 | NUR ---
CLEANED AROUND WOUND WITH WOUND UNDERWRITING DIRECTOR AND 4X4. PATTED DRY. DRSG CHANGED TO COCCYX USING DAKIN'S SOLUTION SOAKED KERLIX PACKED IN WOUND, COVERED WITH 4X4 AND MEDIPORE TAPE. TIMED, DATED AND INITIALLED. PATIENT TOLERATED WELL, NO C/O PAIN.
[2018-12-02 12:16] VITALS: BP 125/59
--- NOTE | 2018-12-02 14:34 | NUR ---
I have reviewed this patient and I concur with the Shift Assessment completed by the Licensed Practical Nurse today this shift.
[2018-12-02 16:55] VITALS: BP 110/71
--- NOTE | 2018-12-02 19:00 | NUR ---
ALERT AND ORIENTED. LEFT THUMB IV INFUSING NS @ 125. DENIES PAIN OR DISCOMFORT AT THIS TIME. REPOSITIONED PATIENT TO OPPOSITE SIDE. WEARING 2 L NASAL CANNULA. DENIES FURTHER NEEDS. CALL LIGHT IN REACH.
[2018-12-02 20:00] VITALS: BP 95/44
--- NOTE | 2018-12-03 03:13 | NUR ---
I have reviewed this patient and I concur with the Shift Assessment completed by the Licensed Practical Nurse today this shift.
[2018-12-03 04:00] VITALS: BP 99/55
--- NOTE | 2018-12-03 07:45 | NUR ---
AAOX4. ON ROOM AIR, EVEN UNLABORED BREATHING, IV TO LEFT FOREARM, PATENT, INFUSING NS 125ML/HR. BED LOWERED AND LOCKED, CALL LIGHT WITHIN REACH. CPOC
[2018-12-03 09:25] VITALS: BP 144/78
--- NOTE | 2018-12-03 09:53 | NUR ---
SACRAL DRESSING CHANGED. DANKINS SOLUTION, SOAKED KERLIX, PACKED, YELLOW/GREENISH, ODOROUS DRAINAGE, REDDED AROUND AREA, BLANCHABLE ON SURRONDING TISSUE, BED LOWERED AND LOCKED, CALL LIGHT WITHIN REACH. CPOC
[2018-12-03 13:00] VITALS: BP 140/72
[2018-12-03 13:37] LABS: ANION GAP 15.6 mmol/L (8-16); CALCIUM 7.8 mg/dL (8.5-10.1); CARBON DIOXIDE 18.1 mmol/L (21.0-32.0); CREATININE - SERUM 1.6 mg/dL (0.6-1.3); POTASSIUM - SERUM 3.7 mmol/L (3.5-5.1)
[2018-12-03 13:38] LABS: BASOPHILS 0 % (0-2); EOSINOPHILS 0.8 % (0-7); HEMATOCRIT 27.3 % (36.0-48.0); HEMOGLOBIN 9.2 g/dL (12-16); IMMATURE GRANULOCYTES 0.6 % (0-5); LYMPHOCYTES 1.9 % (15-50); MCH 28.7 pg (26.0-34.0); MCHC 33.7 g/dL (31.0-37.0); MEAN PLATELET VOLUME 7.8 fL (7.4-10.4); MONOCYTES 4.4 % (2-11); NEUTROPHILS 92.3 % (40-80); RBC 3.21 10x6/uL (4.00-5.40); RDW 16.5 % (11.5-14.5); WBC 19.4 10x3/uL (4.8-10.8)
[2018-12-03 13:40] LABS: PLATELET COUNT 311 10x3/uL (130-400)
[2018-12-03 18:20] VITALS: BP 145/76
[2018-12-03 20:00] VITALS: BP 107/41
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
[2018-12-04] VITALS: BP 118/58
[2018-12-04 04:00] VITALS: BP 117/44
--- NOTE | 2018-12-04 04:49 | NUR ---
I have reviewed this patient and I concur with the Shift Assessment completed by the Licensed Practical Nurse today this shift.
[2018-12-04 08:06] LABS: BASOPHILS 0.1 % (0-2); EOSINOPHILS 1.2 % (0-7); HEMATOCRIT 26.1 % (36.0-48.0); HEMOGLOBIN 8.8 g/dL (12-16); IMMATURE GRANULOCYTES 0.5 % (0-5); LYMPHOCYTES 3.2 % (15-50); MCH 28.3 pg (26.0-34.0); MCHC 33.7 g/dL (31.0-37.0); MCV 83.9 fL (80.0-100.0); MEAN PLATELET VOLUME 7.6 fL (7.4-10.4); MONOCYTES 6.1 % (2-11); NEUTROPHILS 88.9 % (40-80); PLATELET COUNT 273 10x3/uL (130-400); RBC 3.11 10x6/uL (4.00-5.40); RDW 16.3 % (11.5-14.5); WBC 15.8 10x3/uL (4.8-10.8)
[2018-12-04 08:13] LABS: CALCIUM 7.9 mg/dL (8.5-10.1); CARBON DIOXIDE 18.4 mmol/L (21.0-32.0); CREATININE - SERUM 1.4 mg/dL (0.6-1.3); MAGNESIUM - SERUM 1.4 mg/dL (1.8-2.4); POTASSIUM - SERUM 3.4 mmol/L (3.5-5.1)
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
--- NOTE | 2018-12-04 09:45 | NUR ---
IV STARTED BY VASCULAR ACCESS NURSE.
--- NOTE | 2018-12-04 10:50 | NUR ---
RESTING IN BED. DENIES PAIN. DENIES NEEDS.
[2018-12-04 13:02] VITALS: BP 125/71
--- NOTE | 2018-12-04 13:08 | NUR ---
REQUESTED ORANGES. ONE TIME DIET ORDER FOR ORANGES PLACED.
--- NOTE | 2018-12-04 14:32 | NUR ---
RESTING IN BED. DENIES NEEDS AT THIS TIME. WILL CONTINUE TO MONITOR.
--- NOTE | 2018-12-04 15:04 | NUR ---
NUTRITION F/U CHART REVIEWED, PT REMAINS IN ISOLATION. DIABETIC DIET WITH ~ 25% INTAKE RECENT MEALS. WILL CONTINUE TO PROVIDE DIET, MONITOR PO INTAKE. RD FOLLOWING
--- NOTE | 2018-12-04 16:12 | NUR ---
BLOOD SUGAR 225. WILL COVER PER SS.
[2018-12-04 16:56] VITALS: BP 96/72
--- NOTE | 2018-12-04 17:00 | NUR ---
REQUESTED AND GIVEN SANDWICH BOX FROM [facility].
--- NOTE | 2018-12-04 17:29 | NUR ---
REFUSES DINNER TRAY. DENIES FURTHER NEEDS.
[2018-12-04 20:00] VITALS: BP 138/55
--- NOTE | 2018-12-04 21:00 | NUR ---
FSBS 213 8 UNITS OF INSULIN GIVEN PER SS. DRESSING CHANGED AT THIS TIME. PT TOLERATED WELL.
[2018-12-05 01:04] VITALS: BP 115/71
--- NOTE | 2018-12-05 03:39 | NUR ---
I have reviewed this patient and I concur with the Shift Assessment completed by the Licensed Practical Nurse today this shift.
--- NOTE | 2018-12-05 04:16 | NUR ---
PT RESTING IN BED. EYES CLOSED. NO SIGNS OF DISTRESS. BREATHING EVEN AND UNLABROED. CALL LIGHT IN REACH. BED LOWERED AND LOCKED. WILL CONTINUE PLAN OF CARE.
[2018-12-05 05:27] LABS: BASOPHILS 0 % (0-2); EOSINOPHILS 2.2 % (0-7); HEMATOCRIT 25.5 % (36.0-48.0); HEMOGLOBIN 8.5 g/dL (12-16); IMMATURE GRANULOCYTES 0.6 % (0-5); MCH 28.1 pg (26.0-34.0); MCHC 33.3 g/dL (31.0-37.0); MCV 84.4 fL (80.0-100.0); MEAN PLATELET VOLUME 7.8 fL (7.4-10.4); MONOCYTES 7.1 % (2-11); NEUTROPHILS 84.1 % (40-80); PLATELET COUNT 276 10x3/uL (130-400); RBC 3.02 10x6/uL (4.00-5.40); WBC 14.3 10x3/uL (4.8-10.8)
[2018-12-05 05:53] LABS: ANION GAP 14.5 mmol/L (8-16); CALCIUM 7.6 mg/dL (8.5-10.1); CARBON DIOXIDE 19.1 mmol/L (21.0-32.0); CREATININE - SERUM 1.3 mg/dL (0.6-1.3); MAGNESIUM - SERUM 1.4 mg/dL (1.8-2.4); POTASSIUM - SERUM 3.6 mmol/L (3.5-5.1); VANCOMYCIN - RANDOM 22.5 ug/mL (10.0-20.0)
--- NOTE | 2018-12-05 06:34 | NUR ---
FSBS 121 NO INSULIN GIVEN AT THIS TIME PER SS.
--- NOTE | 2018-12-05 08:06 | NUR ---
PT ALERT X 4. BREATH SOUNDS CLEAR BILAT. IV TO LEFT WRIST, PATENT, DRESSING CDI. BILAT BKA. BREAKFAST IN ROOM, CALL LIGHT IN REACH. NO OTHER NEEDS AT THIS TIME.
[2018-12-05 08:16] VITALS: BP 178/91
[2018-12-05 12:43] VITALS: BP 140/74
--- NOTE | 2018-12-05 21:00 | NUR ---
FSBS 271 10 UNITS OF INSULIN GIVEN PER SS.
[2018-12-06 06:51] LABS: BASOPHILS 0 % (0-2); EOSINOPHILS 2.5 % (0-7); HEMATOCRIT 26.7 % (36.0-48.0); HEMOGLOBIN 8.8 g/dL (12-16); IMMATURE GRANULOCYTES 0.5 % (0-5); MCH 28.3 pg (26.0-34.0); MCV 85.9 fL (80.0-100.0); MEAN PLATELET VOLUME 7.9 fL (7.4-10.4); MONOCYTES 8.2 % (2-11); NEUTROPHILS 81.8 % (40-80); PLATELET COUNT 278 10x3/uL (130-400); RBC 3.11 10x6/uL (4.00-5.40); RDW 16.3 % (11.5-14.5); WBC 11.7 10x3/uL (4.8-10.8)
[2018-12-06 06:59] LABS: ANION GAP 14.3 mmol/L (8-16); CALCIUM 7.6 mg/dL (8.5-10.1); CARBON DIOXIDE 19.4 mmol/L (21.0-32.0); CREATININE - SERUM 1.3 mg/dL (0.6-1.3); MAGNESIUM - SERUM 1.6 mg/dL (1.8-2.4); POTASSIUM - SERUM 3.7 mmol/L (3.5-5.1); VANCOMYCIN - RANDOM 16.4 ug/mL (10.0-20.0)
[2018-12-06 09:44] VITALS: BP 142/59
[2018-12-06 12:09] VITALS: BP 127/82
--- NOTE | 2018-12-06 12:15 | NUR ---
1210 - REQUESTED THAT RECEIVING RN REQUEST OVERLAY FOR BED FROM WOUND CARE NURSE OR ADMITTING PHYSICIAN
--- NOTE | 2018-12-06 14:36 | OP ---
PATIENT NAME: BRY GABRIEL MEDICAL RECORD: [id number] :46 LOCATION:D.MS Dias2236 ADMISSION DATE:12/01/18 SURGEON: TAMERA MACIAS MD DATE OF OPERATION: 12/06/2018 SURGEON: Tamera Macias MD PREOPERATIVE DIAGNOSIS: Infected sacral decubitus. POSTOPERATIVE DIAGNOSIS: Stage IV sacral decubitus with abscess and surrounding cellulitis. PROCEDURE PERFORMED: Excisional debridement of stage IV sacral decubitus ulcer. ANESTHESIA: General. COMPLICATIONS: None. SPECIMENS: Anaerobic and aerobic cultures, tissue cultures. Case was grossly contaminated. ESTIMATED BLOOD LOSS: 30 cc. OPERATIVE COURSE: Consent was obtained. The patient was taken to the operating room and general anesthesia was given. She was then placed in the prone position on the operating room table. Time-out was obtained confirming correct patient, procedure. There was a 2 x 2 cm opening that was 4 cm deep. There was active liquid purulent fluid emanating from moving from the wound. Skin was excised in an elliptical fashion using electrocautery. This continued down to the level of the sacrum itself. There was sacral bone exposed. There were multiple tunneling tracts that appear to tunnel alongside and posterior to the sacrum. There was purulent fluid emanating from the tunneling tracts on both sides of the sacrum. All necrotic tissue was debrided. The wound size was approximately 5 x 5 x 6 cm in depth with again sacral bone exposed with tracts tunneling deep to the sacral space. The anaerobic and aerobic cultures were obtained. Tissue cultures were obtained. Electrocautery was used for hemostasis. The wound was irrigated with peroxide and Betadine. The wound was then packed with Kerlix soaked in Betadine and peroxide. At the end of the case, all needle and instrument counts were correct. No complications occurred. The patient was extubated and transferred to the recovery room in satisfactory condition. TRANSINT:[id number] Voice Confirmation ID: [id number] DOCUMENT ID: [id number] TAMERA MACIAS MD at 1436 CC: [id number] DICTATION DATE: 12/06/18 1104 LARGE ENGINE ASSEMBLER: 12/06/18 1243 ADM IN [place] [id number] [place] [address]
[2018-12-06 18:35] VITALS: BP 115/61
--- NOTE | 2018-12-06 21:00 | NUR ---
RESTING QUEITLY WITH NO DISTRESS NOTED. RESP UNALBORED. CL IN REACJ
--- NOTE | 2018-12-07 04:16 | NUR ---
I have reviewed this patient and I concur with the Shift Assessment completed by the Licensed Practical Nurse today this shift.
[2018-12-07 05:11] LABS: BASOPHILS 0 % (0-2); EOSINOPHILS 2.7 % (0-7); HEMATOCRIT 24.8 % (36.0-48.0); HEMOGLOBIN 8.2 g/dL (12-16); IMMATURE GRANULOCYTES 0.5 % (0-5); MCH 28.8 pg (26.0-34.0); MCHC 33.1 g/dL (31.0-37.0); MONOCYTES 7.6 % (2-11); NEUTROPHILS 81.2 % (40-80); PLATELET COUNT 252 10x3/uL (130-400); RBC 2.85 10x6/uL (4.00-5.40); RDW 16.4 % (11.5-14.5)
[2018-12-07 05:45] LABS: ANION GAP 13.9 mmol/L (8-16); CALCIUM 7.5 mg/dL (8.5-10.1); CARBON DIOXIDE 18.4 mmol/L (21.0-32.0); CREATININE - SERUM 1.3 mg/dL (0.6-1.3); MAGNESIUM - SERUM 1.4 mg/dL (1.8-2.4); VANCOMYCIN - RANDOM 14.4 ug/mL (10.0-20.0)
[2018-12-07 06:00] LABS: POTASSIUM - SERUM 4.3 mmol/L (3.5-5.1)
--- NOTE | 2018-12-07 07:30 | NUR ---
PT RESTING IN BED WATCHING TV. NO ACUTE DISTRESS NOTED AT THIS TIME. RESP EVEN AND UNLABORED. EDUCATED PT REGARDING ORDERS FOR WOUND VAC TO WOUND TO COCCYX AREA. SURGICAL DRESSING REMAINS INTACT TO COCCYX. IV TO LEFT FOREARM INTACT WITH NS @ 100ML/HR INFUSING VIA PUMP. SITE WITHOUT REDNESS OR EDEMA. DENIES FURTHER NEEDS AT THIS TIME. CL WITHIN REACH. ENCOURAGED TO CALL WITH NEEDS. CONTINUE POC
[2018-12-07 09:38] VITALS: BP 111/51
--- NOTE | 2018-12-07 11:56 | NUR ---
Wound vac dressing was applied to sacral pressure injury. I&D performed yesterday in OR. WOUND VAC DRESSING APPLICATION: DATE:12/07/18 WOUND LOCATION: SACRUM WOUND MEASUREMENTS: 4CM X 2.5CM X 10CM X 8CM AT 4 OCLOCK WOUND DESCRIPTION: RED MUSCLE, TENDON, OR BONE EXPOSED? BONE DRAINAGE AMOUNT/DESCRIPTION: MODERATE SEROSANGUINOUS ODOR? NONE NOTED TYPE OF SPONGE USED AND AMOUNT: 1 WHITE SPONGE FOR DEPTH/TUNNEL PLUS 3 BLACK SPONGE (1 FOR WOUND BED, 1 FOR PIGTAIL AND 1 FOR TRAC PAD) SETTINGS: -125MMHG MODERATE CONTINUOUS TEACHING: PURPOSE OF WOUND VAC PT TOLERATED WELL.
--- NOTE | 2018-12-07 12:36 | NUR ---
Nutrition Follow Up: Nursing in with pt at the time of RD visit. Interview deferred at this time. Noted pt is POD 1 I&D. Diet: ADA PO Intake: 47% meal avg BM: 12/05/18 Labs reviewed Meds noted including Vit C, MV, Megace Rec continue current diet. Rec 1 pkt Praneeth BID to promote wound healing. RD following.
[2018-12-07 14:11] VITALS: BP 104/57
[2018-12-07 14:12] LABS: AEROBE ID Final report (())
[2018-12-07 17:56] VITALS: BP 117/71
--- NOTE | 2018-12-07 20:30 | NUR ---
AWAKE,ALERT,NO COMPLAITNS VOICED. RESP EVEM AND UNLAOBRED. NO DISTRESS NOTED.IV INFUSING TO LFA WITHOUT REDNESS OR EDEMA NOTED. MORIN PATENT AND DRAINING CLEAR YELLOW URINE.WOUND VAC INTACT TO COCCYX. TURNED AND POSITIONED. CL IN REACH
[2018-12-07 21:08] VITALS: BP 112/68
[2018-12-08 01:39] VITALS: BP 122/73
--- NOTE | 2018-12-08 04:00 | NUR ---
I have reviewed this patient and I concur with the Shift Assessment completed by the Licensed Practical Nurse today this shift.
[2018-12-08 04:58] VITALS: BP 124/65
[2018-12-08 06:12] LABS: BASOPHILS 0.1 % (0-2); EOSINOPHILS 3.2 % (0-7); HEMATOCRIT 23.9 % (36.0-48.0); HEMOGLOBIN 7.8 g/dL (12-16); IMMATURE GRANULOCYTES 0.3 % (0-5); LYMPHOCYTES 8.7 % (15-50); MCH 28.3 pg (26.0-34.0); MCHC 32.6 g/dL (31.0-37.0); MCV 86.6 fL (80.0-100.0); MONOCYTES 7.7 % (2-11); PLATELET COUNT 245 10x3/uL (130-400); RBC 2.76 10x6/uL (4.00-5.40); RDW 16.2 % (11.5-14.5); WBC 9.7 10x3/uL (4.8-10.8)
[2018-12-08 06:38] LABS: ANION GAP 12.7 mmol/L (8-16); CALCIUM 7.6 mg/dL (8.5-10.1); CARBON DIOXIDE 18.8 mmol/L (21.0-32.0); CREATININE - SERUM 1.4 mg/dL (0.6-1.3); MAGNESIUM - SERUM 1.4 mg/dL (1.8-2.4); POTASSIUM - SERUM 4.5 mmol/L (3.5-5.1)
--- NOTE | 2018-12-08 08:01 | NUR ---
AAOX4. ON ROOM AIR, EVEN UNLABORED BREATHING, IV CATHETER TO LEFT FOREARM, PATENT, INFUSING NS AT 100ML/HR. MORIN CATHETER PRESENT, WOUND VAC TO SACRAL WOUND, FUNCTIONING PROPERLY. REPOSITONED IN BED, PAIN LEVEL 8/10. DENIES ANY OTHER NEEDS OR DISCOMFORTS, BED LOWERED AND LOCKED, CALL LIGHT WITHIN REACH. CPOC
[2018-12-08 08:45] VITALS: BP 129/70
--- NOTE | 2018-12-08 09:40 | NUR ---
PAIN MEDICATION GIVEN PER ORDER FOR PAIN LEVEL 8/10.
--- NOTE | 2018-12-08 10:47 | NUR ---
REPOSITIONED TO RIGHT SIDE, SUPPORTED WITH PILLOWS, DENIES ANY OTHER PAIN OR DISCOMFORTS, BED LOWERED AND LOCKED. CALL LIGHT WITHIN REACH. CPOC
[2018-12-08 14:37] VITALS: BP 119/50
--- NOTE | 2018-12-08 14:41 | NUR ---
UNIT 1/2 OF PRBC INITATED RO LEFT FOREARM 20G, VERIFIED BY TWO NURSES, PRE VITALS OBTAINED, LUNGS CLEAR BILATERALLY, DENIES ANY CURRENT NEEDS OR DISCOMFORTS, BED LOWERED AND LOCKED, CALL LIGHT WITHIN REACH. CPOC
--- NOTE | 2018-12-08 15:18 | NUR ---
15 MINUTE VITALS WERE STABLE, AFEBRILE, LUNG SOUNDS CLEAR BILATERALLY. NO SHORTNESS OF BREATH OBSERVED OR STATED. DENIES ANY OTHER DISCOMFORTS OR NEEDS, BED LOWERED AND LOCKED, CALL LIGHT WITHIN REACH. CPOC
[2018-12-08 18:03] VITALS: BP 138/69
--- NOTE | 2018-12-08 19:15 | NUR ---
RECEIVED CARE FROM DAY NURSE. LYING IN BED ON SIDE. REQUEST TO BE TURNED. DONE AT THIS TIME. IV TO LEFT FA PATENT AND INFUSING BLOOD. MORIN TO GRAVITY.
[2018-12-08 21:22] VITALS: BP 128/67
[2018-12-09 05:14] VITALS: BP 130/58
[2018-12-09 06:24] LABS: BASOPHILS 0.1 % (0-2); EOSINOPHILS 3.7 % (0-7); IMMATURE GRANULOCYTES 0.5 % (0-5); MCH 28.4 pg (26.0-34.0); MCHC 32.9 g/dL (31.0-37.0); MCV 86.3 fL (80.0-100.0); MEAN PLATELET VOLUME 8.2 fL (7.4-10.4); MONOCYTES 7.5 % (2-11); NEUTROPHILS 77.2 % (40-80); PLATELET COUNT 226 10x3/uL (130-400); RDW 15.9 % (11.5-14.5)
[2018-12-09 06:29] LABS: HEMATOCRIT 28.9 % (36.0-48.0); HEMOGLOBIN 9.5 g/dL (12-16); RBC 3.35 10x6/uL (4.00-5.40)
--- NOTE | 2018-12-09 06:40 | NUR ---
I have reviewed this patient and I concur with the Shift Assessment completed by the Licensed Practical Nurse today this shift.
[2018-12-09 07:18] LABS: ALBUMIN 1.3 g/dL (3.4-5.0); ANION GAP 15.2 mmol/L (8-16); BILIRUBIN - TOTAL 0.48 mg/dL (0.2-1.3); CALCIUM 7.9 mg/dL (8.5-10.1); CARBON DIOXIDE 17.5 mmol/L (21.0-32.0); CREATININE - SERUM 1.4 mg/dL (0.6-1.3); POTASSIUM - SERUM 4.7 mmol/L (3.5-5.1)
[2018-12-09 08:47] VITALS: BP 90/63
[2018-12-09 12:41] VITALS: BP 132/44
[2018-12-09 18:07] VITALS: BP 150/42
[2018-12-09 20:00] VITALS: BP 135/47
[2018-12-10] VITALS: BP 129/56
[2018-12-10 04:00] VITALS: BP 126/76
--- NOTE | 2018-12-10 04:29 | NUR ---
I have reviewed this patient and I concur with the Shift Assessment completed by the Licensed Practical Nurse today this shift.
[2018-12-10 06:29] LABS: BASOPHILS 0.2 % (0-2); EOSINOPHILS 4.8 % (0-7); HEMATOCRIT 28.4 % (36.0-48.0); HEMOGLOBIN 9.3 g/dL (12-16); IMMATURE GRANULOCYTES 0.3 % (0-5); MCH 28.3 pg (26.0-34.0); MCHC 32.7 g/dL (31.0-37.0); MCV 86.3 fL (80.0-100.0); MEAN PLATELET VOLUME 8.3 fL (7.4-10.4); MONOCYTES 8.3 % (2-11); NEUTROPHILS 75.4 % (40-80); PLATELET COUNT 230 10x3/uL (130-400); RBC 3.29 10x6/uL (4.00-5.40); RDW 15.8 % (11.5-14.5); WBC 8.6 10x3/uL (4.8-10.8)
[2018-12-10 07:17] LABS: ALBUMIN 1.2 g/dL (3.4-5.0); ANION GAP 14.7 mmol/L (8-16); BILIRUBIN - TOTAL 0.36 mg/dL (0.2-1.3); CALCIUM 7.9 mg/dL (8.5-10.1); CARBON DIOXIDE 17.3 mmol/L (21.0-32.0); CREATININE - SERUM 1.1 mg/dL (0.6-1.3); PROTEIN - SERUM 5.9 g/dL (6.4-8.2)
--- NOTE | 2018-12-10 08:34 | NUR ---
AAOX4. ON ROOM AIR, IV TO LEFT FOREARM, PATENT, INFUSING NS AT 50ML/HR, EVEN UNLABORED BREATHING, WOUND VAC TO COCCYX, MORIN CATHETER, YELLOW/CLEAR URINE IN DRAINAGE BAG, BILATERAL BKA, DENIES ANY CURRENT NEEDS OR DISCOMFORTS, BED LOWERED AND LOCKED, CALL LIGHT WITHIN REACH. CPOC
[2018-12-10 08:49] VITALS: BP 109/63
[2018-12-10 12:39] VITALS: BP 131/44
--- NOTE | 2018-12-10 16:55 | NUR ---
IV INFILITRATED TO LEFT FOREARM, DISCONTINUED IV, CATHETER TIP INTACT, REQUEST PRN PAIN MEDICATION FOR PAIN LEVEL 8/10 TO BUTTOCKS AND LOWER BACK, DENIES ANY OTHER NEEDS OR DISCOMFORTS, BED LOWRED AND LOCKED, CALL LIGHT WITHIN REACH. CPOC
[2018-12-10 17:55] VITALS: BP 128/50
--- NOTE | 2018-12-10 18:33 | NUR ---
AAOX4. ON ROOM AIR, WOUND VAC TO COCCYX, NO IV ACCESS, REFUSED TO LET ME START ANOTHER AT CURRENT TIME, RECIEVED PRN PAIN MEDICATION 1 TIME DURING SHIFT, MORIN CATHETER, DENIES ANY OTHER NEEDS OR DISCOMFORTS, BED LOWERED AND LOCKED, CALL LIGHT WITHIN REACH. CPOC
--- NOTE | 2018-12-10 19:15 | NUR ---
RECIEVED CARE FROM DAY NURSE. LYING IN BED ON SIDE. NO IV. CALL LIGHT AT SIDE. MORIN TO GRAVITY. NO NEEDS VOICED AT THIS TIME.
[2018-12-10 20:00] VITALS: BP 112/52
[2018-12-11] VITALS: BP 118/60
--- NOTE | 2018-12-11 03:26 | NUR ---
I have reviewed this patient and I concur with the Shift Assessment completed by the Licensed Practical Nurse today this shift.
[2018-12-11 04:00] VITALS: BP 119/56
[2018-12-11 05:31] LABS: BASOPHILS 0.2 % (0-2); EOSINOPHILS 3.8 % (0-7); HEMATOCRIT 29.2 % (36.0-48.0); HEMOGLOBIN 9.6 g/dL (12-16); IMMATURE GRANULOCYTES 0.4 % (0-5); LYMPHOCYTES 10.9 % (15-50); MCH 28.4 pg (26.0-34.0); MCHC 32.9 g/dL (31.0-37.0); MCV 86.4 fL (80.0-100.0); MEAN PLATELET VOLUME 8.6 fL (7.4-10.4); MONOCYTES 9.1 % (2-11); NEUTROPHILS 75.6 % (40-80); PLATELET COUNT 228 10x3/uL (130-400); RBC 3.38 10x6/uL (4.00-5.40); RDW 15.9 % (11.5-14.5); WBC 9.2 10x3/uL (4.8-10.8)
[2018-12-11 06:16] LABS: ALBUMIN 1.3 g/dL (3.4-5.0); ANION GAP 13.3 mmol/L (8-16); BILIRUBIN - TOTAL 0.33 mg/dL (0.2-1.3); CALCIUM 7.9 mg/dL (8.5-10.1); CARBON DIOXIDE 19.3 mmol/L (21.0-32.0); CREATININE - SERUM 1.2 mg/dL (0.6-1.3); POTASSIUM - SERUM 5.6 mmol/L (3.5-5.1); PROTEIN - SERUM 6.4 g/dL (6.4-8.2)
[2018-12-11 08:16] VITALS: BP 142/73
--- NOTE | 2018-12-11 11:52 | NUR ---
WOUND VAC DRESSING CHANGE DATE: 12/11/18 WOUND LOCATION: sacrum WOUND MEASUREMENTS: 4cm x 2.5cm x 10.5cm WOUND DESCRIPTION: red MUSCLE, TENDON, OR BONE EXPOSED? bone DRAINAGE AMOUNT/DESCRIPTION: small serosanguinous ODOR? none TYPE OF SPONGE USED AND AMOUNT: 1 white + 3 black SETTINGS:-125mmhg moderate continuous TEACHING: dressing changes Pt tolerated well.
[2018-12-11 12:18] VITALS: BP 136/79
[2018-12-11 15:53] VITALS: BP 131/67
--- NOTE | 2018-12-11 17:08 | NUR ---
I have reviewed this patient and I concur with the Shift Assessment completed by the Licensed Practical Nurse today this shift.
--- NOTE | 2018-12-11 19:45 | NUR ---
PATIENT LAYING IN BED. NO COMPLAINTS AT THIS TIME. NO DISTRESS NOTED.
[2018-12-11 20:00] VITALS: BP 128/68
--- NOTE | 2018-12-12 01:58 | NUR ---
PATIENT LAYING IN BED, EYES CLOSED, CHEST RISING AND FALLING. NO DISTRESS NOTED.
--- NOTE | 2018-12-12 04:32 | NUR ---
I have reviewed this patient and I concur with the Shift Assessment completed by the Licensed Practical Nurse today this shift.
--- NOTE | 2018-12-12 04:50 | NUR ---
MORIN EMPTIED-600 OUT.
--- NOTE | 2018-12-12 06:30 | NUR ---
PATIENT LAYING IN BED. PATIENT COMPLAINS OF LEFT HIP HURTING. PATIENT TURNED TO RIGHT SIDE WITH PILLOW UNDER HIPS. PATIENT STATES IT MADE HER HIP FEEL BETTER. NO OTHER COMPLAINTS AT THIS TIME. NO DISTRESS NOTED.
[2018-12-12 06:33] VITALS: BP 127/63
[2018-12-12 06:50] LABS: BASOPHILS 0.1 % (0-2); EOSINOPHILS 5.7 % (0-7); HEMATOCRIT 29.7 % (36.0-48.0); HEMOGLOBIN 9.7 g/dL (12-16); IMMATURE GRANULOCYTES 0.4 % (0-5); LYMPHOCYTES 10.6 % (15-50); MCH 28.5 pg (26.0-34.0); MCHC 32.7 g/dL (31.0-37.0); MCV 87.4 fL (80.0-100.0); MEAN PLATELET VOLUME 8.3 fL (7.4-10.4); MONOCYTES 7.2 % (2-11); PLATELET COUNT 230 10x3/uL (130-400); RDW 15.9 % (11.5-14.5); WBC 7.5 10x3/uL (4.8-10.8)
[2018-12-12 07:06] LABS: ALBUMIN 1.3 g/dL (3.4-5.0); ANION GAP 14.3 mmol/L (8-16); BILIRUBIN - TOTAL 0.29 mg/dL (0.2-1.3); CALCIUM 7.9 mg/dL (8.5-10.1); CARBON DIOXIDE 18.1 mmol/L (21.0-32.0); CREATININE - SERUM 1.3 mg/dL (0.6-1.3); POTASSIUM - SERUM 5.4 mmol/L (3.5-5.1); PROTEIN - SERUM 6.2 g/dL (6.4-8.2)
--- NOTE | 2018-12-12 07:35 | NUR ---
RESTING IN BED. ALERT AND ORIENTED X 3. LUNGS CLEAR BILATERALLY IN ALL RODRIGUEZ. HEART SOUNDS S1 AND S2 HEARD IN ALL RODRIGUEZ. BOWEL SOUNDS ACTIVE X 4. WOUND VAC IN PLACE TO PU ON COCCYX. BILATERAL BKA NOTED. SKIN OTHERWISE INTACT WITHOUT REDNESS. MORIN IN PLACE DRAINING YELLOW URINE. RIGHT SIDE OF FACE WITH SWELLING NOTED TO JAW. PATIENT STATES THIS IS NOT NEW. DENIES PAIN. DENIES NEEDS. STATES WANTS TO GO HOME TODAY. JIMENEZ LOW. CALL JIMENEZ AND PERSONAL ITEMS IN REACH. WILL CONTINUE TO MONITOR.
[2018-12-12 08:14] VITALS: BP 140/74
--- NOTE | 2018-12-12 10:38 | NUR ---
RESTING IN BED. DENIES NEEDS. WILL CONTINUE TO MONITOR.
--- NOTE | 2018-12-12 10:44 | MORECARE ---
CASE MANAGEMENT DISCHARGE SUMMARY PATIENT: BRY GABRIEL UNIT: [id number] ADM DATE: 12/01/18 AGE: 68 : 48 SEX: F ROOM/BED: D.2236 AUTHOR: PHAM,DOC PHYSICIAN: REFERRING PHYSICIAN: ANMOL SALINAS MD DATE OF SERVICE: 12/12/18 Discharge Plan Patient Name: BRY GABRIEL Facility: [facility]:[place] : 1950 Planned Disposition: SNF w Planned Readmission Anticipated Discharge Date: Discharge Date: Expected LOS: Initial Reviewer: [email or web address] Initial Review Date: 12/01/2018 Generated: 12/12/18 11:43 am DCP- Discharge Planning Updated by [email or web address]: Ingrid Ragsdale on 12/01/18 3:[address] Patient Name: BRY GABRIEL Admission Status: ER Accout number: [id number] Admission Date: 12-01-2018 : 1950 Admission Diagnosis:PRESSURE ULCER OF SACRAL REGION, STAGE 3 Attending: ANMOL SALINAS Current LOS: 1 Anticipated DC Date: Planned Disposition: SNF w Planned Readmission Primary Insurance: MEDICARE A & B Discharge Planning Comments: CM met with patient in the room to discuss discharge planning/needs. States she has been at [facility] in the skilled therapy unit and plans to return there at discharge. I spoke with Xin there at [facility] and she verifies that she has been in skilled and they will accept her back when ready for discharge. Xin states if she is going there on IV antibiotics, they will request a PICC line be placed. Patient is a BKA and states she has just gotten her prosthesis and learning to ambulate with them. CM will continue to follow and assist with discharge planning/needs. [employer] Consultant: Ingrid Ragsdale DCPIA - Discharge Planning Initial Assessment Updated by [email or web address]: Ingrid Ragsdale on 12/01/18 4:00 pm * Is the patient Alert and Oriented? Yes * How many steps to enter\exit or inside your home? 0/0 * PCP Dr. Spencer Ortiz * Preadmission Environment [facility] Facility * Facility Name [facility] * ADLs Partial Dependent * Partial ADLs (Assistance needed) Ambulation Bathing Dressing Medication Management Toileting Transfers * Equipment Wheelchair * Other Equipment Prosthesis * List name and contact numbers for known caregivers / representatives who currently or will assist patient after discharge: Shea Garay [facility] - [phone] * Verbal permission to speak to the caregivers and representatives has been obtained from the patient. Yes * Community resources currently utilized None * Additional services required to return to the preadmission environment? No * Can the patient safely return to the preadmission environment? Yes * Has this patient been hospitalized within the prior 30 days at any hospital? Yes External Providers External Provider: [facility] Next Contact Date: Service Request Date: Service Type: Resolution: Reviewer: Comments: Coverage Notice Reviewer: [id number] Jazmin Ragsdale Notice Issued Date-Time: 12/01/2018 16:07 Notice Type: Patient Choice Letter Notice Delivered To: Patient Relationship to Patient: Self Rail Track Maintainer Name: Delivery Method: HAND - Hand Delivered Jaci Days: Prior Verbal Notification: Recipient Understood Notice: Yes Recipient Signature: Yes Med Rec Note Co-signed by Attending: Coverage Notice Comment: She is alert and oriented, requests to return to [facility]. Difficulty with signing name. Last DP export: 12/01/18 3:07 pm Patient Name: BRY GABRIEL Page [id number] at 1044 All edits/amendments must be made on the electronic document DICTATION DATE: 12/12/18 1043 CORRECTIONAL OFFICER CAPTAIN: SHADIA 12/12/18 1043 RPT#: [id number] DC DATE: STATUS: ADM IN [facility] [address] [place] [address] END OF REPORT
--- NOTE | 2018-12-12 13:01 | NUR ---
DISCHARGE EDUCATION PROVIDED BOTH WRITTEN AND VERBAL. DENIES FURTHER QUESTIONS. EDUCATION PROVIDED ON WOUND VAC. WILL DETACH WHEN AMBULANCE ARRIVES. NO IV. STATES DOES NOT HAVE CLOTHING AT HOSPITAL AND WILL LEAVE IN GOWN. REQUESTED AND GIVEN BAG FOR BELONGINGS AND ASSISTED TO BAG ITEMS. DENIES FURTHER NEEDS. REPORT CALLED TO LEO AT [facility].
--- NOTE | 2018-12-12 14:04 | MORECARE ---
CASE MANAGEMENT DISCHARGE SUMMARY PATIENT: BRY GABRIEL UNIT: [id number] ADM DATE: 12/01/18 AGE: 68 : 48 SEX: F ROOM/BED: D.2236 AUTHOR: PHAM,DOC PHYSICIAN: REFERRING PHYSICIAN: ANMOL SALINAS MD DATE OF SERVICE: 12/12/18 Discharge Plan Patient Name: BRY GABRIEL Facility: [facility]:[place] : 1950 Planned Disposition: SNF w Planned Readmission Anticipated Discharge Date: 12/12/18 Discharge Date: Expected LOS: 11 Initial Reviewer: [id number] Initial Review Date: 12/01/2018 Generated: 12/12/18 3:03 pm Comments DCP- Discharge Planning Updated by [email or web address]: Marlene Tucker on 12/12/18 12:[address] PATIENT DISCHARGED TO PENDING SALE TO [facility]. DISCHARGE IMM SERVED. PATIENT STATED SHE WAS ANXIOUS TO GO. AWAITING DISCHARGE. DCP- Discharge Planning Updated by [email or web address]: Ingrid Ragsdale on 12/01/18 3:[address] Patient Name: BRY GABRIEL Admission Status: ER Accout number: [id number] Admission Date: 12-01-2018 : 1950 Admission Diagnosis:PRESSURE ULCER OF SACRAL REGION, STAGE 3 Attending: ANMOL SALINAS Current LOS: 1 Anticipated DC Date: Planned Disposition: SNF w Planned Readmission Primary Insurance: MEDICARE A & B Discharge Planning Comments: CM met with patient in the room to discuss discharge planning/needs. States she has been at [facility] in the skilled therapy unit and plans to return there at discharge. I spoke with Xin there at [facility] and she verifies that she has been in skilled and they will accept her back when ready for discharge. Xin states if she is going there on IV antibiotics, they will request a PICC line be placed. Patient is a BKA and states she has just gotten her prosthesis and learning to ambulate with them. CM will continue to follow and assist with discharge planning/needs. Quality Systems Specialist: Ingrid Ragsdale DCPIA - Discharge Planning Initial Assessment Updated by [email or web address]: Ingrid Ragsdale on 12/01/18 4:00 pm * Is the patient Alert and Oriented? Yes * How many steps to enter\exit or inside your home? 0/0 * PCP Dr. Spencer Ortiz * Preadmission Environment Retirement Facility * Facility Name [facility] * ADLs Partial Dependent * Partial ADLs (Assistance needed) Ambulation Bathing Dressing Medication Management Toileting Transfers * Equipment Wheelchair * Other Equipment Prosthesis * List name and contact numbers for known caregivers / representatives who currently or will assist patient after discharge: Shea Garay [facility] - [phone] * Verbal permission to speak to the caregivers and representatives has been obtained from the patient. Yes * Community resources currently utilized None * Additional services required to return to the preadmission environment? No * Can the patient safely return to the preadmission environment? Yes * Has this patient been hospitalized within the prior 30 days at any hospital? Yes Coverage Notice Reviewer: [id number] Jazmin Ragsdale Notice Issued Date-Time: 12/01/2018 16:07 Notice Type: Patient Choice Letter Notice Delivered To: Patient Relationship to Patient: Self Ditch Cleaner Name: Delivery Method: HAND - Hand Delivered Jaci Days: Prior Verbal Notification: Recipient Understood Notice: Yes Recipient Signature: Yes Med Rec Note Co-signed by Attending: Coverage Notice Comment: She is alert and oriented, requests to return to [facility]. Difficulty with signing name. Reviewer: [id number] - Marlene Tucker Notice Issued Date-Time: 12/12/2018 13:50 Notice Type: IM Discharge Notice Notice Delivered To: Patient Relationship to Patient: Self Ditch Cleaner Name: Delivery Method: HAND - Hand Delivered Jaci Days: Prior Verbal Notification: Recipient Understood Notice: Yes Recipient Signature: Yes Med Rec Note Co-signed by Attending: Coverage Notice Comment: DISCHARGE IMM SERVED. PATIENT W/ SIGNED COPY. SIGNED COPY TO THE HARD COVER CHART Last DP export: 12/12/18 9:43 a Patient Name: BRY GABRIEL Page [phone] at 1404 All edits/amendments must be made on the electronic document DICTATION DATE: 12/12/181402 DELIVERY ASSISTANT: SHADIA 12/12/18 1403 RPT#: [id number] [place] DATE: STATUS: ADM IN [facility] [address] [place] [address] END OF REPORT
--- NOTE | 2018-12-12 14:12 | MORECARE ---
CASE MANAGEMENT DISCHARGE SUMMARY PATIENT: BRY GABRIEL UNIT: [id number] ADM DATE: 12/01/18 AGE: 68 : 48 SEX: F ROOM/BED: D.2236 AUTHOR: PHAM,DOC PHYSICIAN: REFERRING PHYSICIAN: ANMOL SALINAS MD DATE OF SERVICE: 12/12/18 Discharge Plan Patient Name: BRY GABRIEL Facility: [facility]:[place] : 1950 Planned Disposition: SNF w Planned Readmission Anticipated Discharge Date: 12/12/18 Discharge Date: Expected LOS: 11 Initial Reviewer: [email or web address] Initial Review Date: 12/01/2018 Generated: 12/12/18 3:12 pm Comments DCP- Discharge Planning Updated by [email or web address]: Marlene Tucker on 12/12/18 1:[address] Patient is being discharged to a Medicare bed. DCP- Discharge Planning Updated by [email or web address]: Marlene Tucker on 12/12/18 12:[address] PATIENT DISCHARGED TO [facility]. DISCHARGE IMM SERVED. PATIENT STATED SHE WAS ANXIOUS TO GO. AWAITING DISCHARGE. DCP- Discharge Planning Updated by [id number]: Ingrid Ragsdale on 12/01/18 3:[address] Patient Name: BRY GABRIEL Admission Status: ER Accout number: [id number] Admission Date: 12-01-2018 : 1950 Admission Diagnosis:PRESSURE ULCER OF SACRAL REGION, STAGE 3 Attending: ANMOL SALINAS Current LOS: 1 Anticipated DC Date: Planned Disposition: SNF w Planned Readmission Primary Insurance: MEDICARE A & B Discharge Planning Comments: CM met with patient in the room to discuss discharge planning/needs. States she has been at [facility] in the skilled therapy unit and plans to return there at discharge. I spoke with Xin there at [facility] and she verifies that she has been in skilled and they will accept her back when ready for discharge. Xin states if she is going there on IV antibiotics, they will request a PICC line be placed. Patient is a BKA and states she has just gotten her prosthesis and learning to ambulate with them. CM will continue to follow and assist with discharge planning/needs. New Product Trainer: Ingrid Ragsdale DCPIA - Discharge Planning Initial Assessment Updated by [email or web address]: Ingrid Ragsdale on 12/01/18 4:00 pm * Is the patient Alert and Oriented? Yes * How many steps to enter\exit or inside your home? 0/0 * PCP Dr. Spencer Ortiz * Preadmission Environment Assisted Facility * Facility Name [facility] * ADLs Partial Dependent * Partial ADLs (Assistance needed) Ambulation Bathing Dressing Medication Management Toileting Transfers * Equipment Wheelchair * Other Equipment Prosthesis * List name and contact numbers for known caregivers / representatives who currently or will assist patient after discharge: Shea Garay [facility] - [phone] * Verbal permission to speak to the caregivers and representatives has been obtained from the patient. Yes * Community resources currently utilized None * Additional services required to return to the preadmission environment? No * Can the patient safely return to the preadmission environment? Yes * Has this patient been hospitalized within the prior 30 days at any hospital? Yes Coverage Notice Reviewer: [id number] - Ingrid Ragsdale Notice Issued Date-Time: 12/01/2018 16:07 Notice Type: Patient Choice Letter Notice Delivered To: Patient Relationship to Patient: Self Rn Perinatal Name: Delivery Method: HAND - Hand Delivered Jaci Days: Prior Verbal Notification: Recipient Understood Notice: Yes Recipient Signature: Yes Med Rec Note Co-signed by Attending: Coverage Notice Comment: She is alert and oriented, requests to return to [facility]. Difficulty with signing name. Reviewer: [email or web address] - Marlene Tucker Notice Issued Date-Time: 12/12/2018 13:50 Notice Type: IM Discharge Notice Notice Delivered To: Patient Relationship to Patient: Self Rn Perinatal Name: Delivery Method: HAND - Hand Delivered Jaci Days: Prior Verbal Notification: Recipient Understood Notice: Yes Recipient Signature: Yes Med Rec Note Co-signed by Attending: Coverage Notice Comment: DISCHARGE IMM SERVED. PATIENT W/ SIGNED COPY. SIGNED COPY TO THE HARD COVER CHART Last DP export: 12/12/18 1:03 p Patient Name: BRY GABRIEL Page [id number] at 1412 All edits/amendments must be made on the electronic document DICTATION DATE: 12/12/18 1411 K9 HANDLER: SHADIA 12/12/18 1411 RPT#: [id number] DC DATE: STATUS: ADM IN [facility] [address] [facility] [place] [address] END OF REPORT
--- NOTE | 2018-12-12 14:18 | NUR ---
SPOKE WITH PATIENT THAT AMBULANCE WILL NOT BE AVAILABLE FOR A FEW HOURS TO [facility]. VERBALIZED UNDERSTANDING.
--- NOTE | 2018-12-12 16:51 | NUR ---
RESTING IN BED. DENIES NEEDS. WILL CONTINUE TO MONITOR.
--- NOTE | 2018-12-12 18:26 | NUR ---
PATIENT DISCHARGED TO [facility] VIA AMBULANCE WITH ALL BELONGINGS. WOUND VAC REMOVED AND PLACED IN SOILED UTILITY.
== END 2018-12-12 18:27 | DRG 853 ==
LOC: D.ER 00:56 → D.MS 01:42
PROVIDERS: Family Medicine; Surgery; ADMIT Internal Medicine Nephrology; ATTEND Internal Medicine Nephrology
PROC: 0JB70ZZ Excision of Back Subcutaneous Tissue and Fascia, Open Approach (ICD-10-PCS; principal; 2018-12-06 10:00)
DX: A41.9 Sepsis, unspecified organism (principal); L89.154 Pressure ulcer of sacral region, stage 4; E43 Unspecified severe protein-calorie malnutrition; M46.28 Osteomyelitis of vertebra, sacral and sacrococcygeal region; E87.1 Hypo-osmolality and hyponatremia; N17.9 Acute kidney failure, unspecified; E11.69 Type 2 diabetes mellitus with other specified complication; I10 Essential (primary) hypertension; J44.9 Chronic obstructive pulmonary disease, unspecified; I48.91 Unspecified atrial fibrillation; I25.10 Atherosclerotic heart disease of native coronary artery without angina pectoris; M81.0 Age-related osteoporosis without current pathological fracture